=== PATIENT | female | born 1960 | race Caucasian/White ===

== ENCOUNTER 2022-02-17 00:24 | Day surgery (SDC) | payer OTHER, SELFPAY ==
[2022-02-03 11:33] VITALS: BMI 36.6
--- NOTE | 2022-02-15 16:48 | PM.HPGS ---
History of Present Illness History of Present Illness Consent: Risks, benefits, and alternatives have been discussed and questions answered. Patient agrees to proceed with procedure. Chief complaint: neoplasm screening, hx of colon polyps Narrative: Eva Joaquin is a 61 year old female here for colon cancer screening. Six years ago she had removal of at least 1 polyp Review of Systems Review of Systems: All systems reviewed & are unremarkable except as noted in HPI and below PMFSH Social History Social History Smoking packs per day: 1 Smoking cigarettes per day: 20.0 Years smoked: 20 Smoking pack-years: 20.00 Smoking status: Former smoker Alcohol intake: current Alcohol use details: rare Substance use: never Substance use type: does not use Living arrangements: with family Spiritual care concerns: No Meds Home Medications and Allergies Home Medications Medication Instructions Recorded Confirmed Type atorvastatin 20 mg tablet 20 mg PO DAILY 02/03/22 02/03/22 History hydrocodone 7.5 mg-acetaminophen 1 tablet PO Q4-6H 02/03/22 02/03/22 History 325 mg tablet loratadine 10 mg tablet 10 mg PO DAILY 02/03/22 02/03/22 History lorazepam 1 mg tablet 1 mg PO TID 02/03/22 02/03/22 History Allergies Allergy/AdvReac Type Severity Reaction Status Date / Time latex Allergy Unknown Hives Verified 02/17/22 06:30 Penicillins Allergy Unknown Hives Verified 02/17/22 06:30 tetanus toxoid, adsorbed Allergy Unknown Hives Verified 02/17/22 06:30 novacaine Allergy Unknown Shakiness Uncoded 02/17/22 06:30 Exam Const: General: alert Orientation/consciousness: patient oriented x3 Resp: Auscultation: clear to auscultation bilaterally Cardio: Rhythm: regular rhythm GI: GI Palp: Yes Soft to palpation and No Tenderness to palpation present (GI) Neuro: General: patient oriented x3 Assessment and Plan Assessment and plan (1) Colon cancer screening: Code(s): Z12.11 - Encounter for screening for malignant neoplasm of colon Status: Acute Assessment and Plan: Colonoscopy with possible biopsy or polypectomy or cautery or injection of substances.
[2022-02-17 06:32] VITALS: BP 147/64; PULSE 88; RESP 18; TEMP 36.1; O2SAT 96
[2022-02-17] MEDS: LACTATED RINGERS 1,000 ML 150 ML IV CONT (06:39)
--- NOTE | 2022-02-17 07:15 | P.PNAN_ITS ---
Anes - Initial Pre Proc Eval Procedure: Operation Date: 02/17/22 07:30 Proposed Procedures p Screening Colonoscopy - Priyank Tran MD Date/Time: 02/17/22 07:15 Surgeon: Priyank Tran MD Pre Op Diagnosis: neoplasm screening, hx of colon polyps Patient Data Age: 61 Gender: F Height: 1.65 m Weight: 98 kg Last Vital Signs Temp 96.9 F L 02/17/22 06:32 Pulse 88 02/17/22 06:32 Resp 18 02/17/22 06:32 BP 147/64 H 02/17/22 06:32 Pulse Ox 96 02/17/22 06:32 O2 Del Method Room Air 02/17/22 06:32 Allergies Allergy/AdvReac Type Severity Reaction Status Date / Time latex Allergy Unknown Hives Verified 02/17/22 06:30 Penicillins Allergy Unknown Hives Verified 02/17/22 06:30 tetanus toxoid, adsorbed Allergy Unknown Hives Verified 02/17/22 06:30 novacaine Allergy Unknown Shakiness Uncoded 02/17/22 06:30 Home Medications Medication Instructions Recorded Confirmed Type atorvastatin 20 mg tablet 20 mg PO DAILY 02/03/22 02/03/22 History hydrocodone 7.5 mg-acetaminophen 1 tablet PO Q4-6H 02/03/22 02/03/22 History 325 mg tablet loratadine 10 mg tablet 10 mg PO DAILY 02/03/22 02/03/22 History lorazepam 1 mg tablet 1 mg PO TID 02/03/22 02/03/22 History Patient hx anesthesia problems: none Family hx anesthesia problems: none Results Review: All pre-operative results and documents have been reviewed as part of the pre- operative evaluation. [facility] Social History Social History Smoking packs per day: 1 Smoking cigarettes per day: 20.0 Years smoked: 20 Smoking pack-years: 20.00 Smoking status: Former smoker Alcohol intake: current Alcohol use details: rare Substance use: never Substance use type: does not use Living arrangements: with family Spiritual care concerns: No Anes - Eval Final PreProcedure Day of Procedure 02/17/22 07:15 Patient weight: obese Heart: regular rate and rhythm Lungs: clear to auscultation Airway: Mallampati scale class II Neurological: alert and oriented Last oral intake: >/= 8 hours ASA classification: III Emergent: no Anesthetic plan: proceed Anesthesia type and monitoring: general GIVS and standard monitoring Results Review: All pre-operative results and documents have been reviewed as part of the pre- operative evaluation. Informed Consent: The patient's anesthetic plan and its attendant risks and benefits were discussed with the patient/family/POA. Questions were solicited and answers provided to the satisfaction of the patient/family/POA.
--- NOTE | 2022-02-17 07:18 | SUR.PREOP ---
PT TOOK HER OWN PAIN PILL AT THIS TIME FROM HER HOME MEDS PER DR ELLER ORDER WITH A SMALL SIP OF WATER. INTRAOP TEAM MADE AWARE. NO FURTHER ORDERS.
[2022-02-17 07:55] VITALS: BP 156/78; PULSE 77; RESP 17; O2SAT 97
[2022-02-17 08:05] VITALS: BP 157/79; PULSE 79; RESP 17; O2SAT 98
[2022-02-17 08:15] VITALS: BP 158/76; PULSE 70; RESP 24; O2SAT 99
== END 2022-02-17 08:28 | disposition home or self-care (01) ==
PROVIDERS: PCP Internal Medicine; Visit Provider Internal Medicine Gastroenterology
PROC: 0DJD8ZZ Inspection of Lower Intestinal Tract, Via Natural or Artificial Opening Endoscopic (ICD-10-PCS; CPT 45378; principal; 2022-02-17 07:30)
DX: Z12.11 Encounter for screening for malignant neoplasm of colon (principal); D12.4 Benign neoplasm of descending colon; D12.5 Benign neoplasm of sigmoid colon; K62.1 Rectal polyp; Z87.891 Personal history of nicotine dependence; E66.9 Obesity, unspecified; Z68.36 Body mass index [BMI] 36.0-36.9, adult
CPT/HCPCS: 45385; 88305; J2704; J7120